=== PATIENT | male | born 1945 ===

== ENCOUNTER 2018-10-17 16:14 | Inpatient (IN) ==
[2018-10-17] MEDS ORDERED: SODIUM CHLORIDE 0.9% 1,000 ML IV STA (16:45)
[2018-10-17] MEDS ORDERED: ALBUTEROL/IPRATROPIUM 3 ML NEB RESP TX STA (16:45)
[2018-10-17 17:01] LABS: Basophils # 0.1 10*3/uL (0.0-0.2); Eosinophils % 0.3 % (0.00-10.9); Hematocrit 37.8 VOL% (42.0-52.0); Hemoglobin 11.3 GM/DL (14.0-18.0); Immature Granulocytes % 0.3 %; Immature Granulocytes Absolute 0.02 #; Lymphocytes # 1.5 10*3/uL (1.4-4.0); Lymphocytes % 24.5 % (21.2-54.2); Mean Corpuscular HGB Conc 29.9 GM/DL (32-36); Mean Corpuscular Volume 85.7 FL (87-102); Mean Platelet Volume 12.1 FL (9.6-12.0); Monocytes % 9.7 % (1.7-12.7); Neutrophils % 64.2 % (38.7-73.9); Platelet Count 199 T/CUMM (130-400); Red Blood Count 4.41 MC/CUMM (3.8-5.5); Red Cell Distribution Width 16.4 % (9.3-17.3); White Blood Count 6.2 T/CUMM (4-12)
[2018-10-17 17:18] LABS: Alanine Aminotransferase 34 U/L (16-61); Albumin 3.2 G/DL (3.4-5.0); Alkaline Phosphatase 91 U/L (45-117); Aspartate Amino Transferase 26 U/L (0-37); Bilirubin,Total < 0.39 MG/DL (0.2-1.0); Blood Urea Nitrogen 16 MG/DL (7-18); Calcium 9.4 MG/DL (8.5-10.1); Glucose 123 MG/DL (74-106); Osmolality,Calculated 280.4 MOS/KG (273-304); Total Protein 8.6 G/DL (6.4-8.3)
[2018-10-17 18:09] LABS: Apearance,Urine Slightly Hazy (Clear); Bilirubin,Urine Negative (Negative); Blood, Urine Small mg/dL (Negative); Glucose,Urine (UA) Negative (Negative); Hyaline Casts,Urine 11 /LPF (0-3); Ketones,Urine 5 mg/dL (Negative); Mucus,Urine Many /LPF (Occasional); Nitrite,Urine Negative (Negative); Protein,Urine Negative; RBC,Urine 20 /HPF (0-4); Squamous Epithelial Cell,Urine Occasional /HPF (0-10); Urine Color Dark yellow (Yellow); Urine Specific Gravity 1.028 (1.001-1.035); WBC,Urine 10 /HPF (0-6)
[2018-10-17] MEDS ORDERED: LEVOFLOXACIN INJ 500 MG in PREMIX 1 EACH IV STA (18:30)
[2018-10-17] MEDS ORDERED: GLUCAGON 1 MG VIAL IM PRN (19:50)
[2018-10-17] MEDS ORDERED: ACETAMINOPHEN 325 MG TABLET PO PRN (19:50)
[2018-10-17] MEDS ORDERED: ONDANSETRON 4 MG/2 ML VIAL IV PRN (19:50)
[2018-10-17] MEDS ORDERED: DEXTROSE 50% 25 GM/50 ML VIAL IV PRN (19:50)
[2018-10-17] MEDS ORDERED: ENOXAPARIN 30 MG/0.3 ML SYRINGE SUBCUT SCH (21:00)
[2018-10-17] MEDS: ALBUTEROL/IPRATROPIUM 3 ML NEB RESP TX SCH (21:05)
[2018-10-17] MEDS: SODIUM CHLORIDE 0.9% 1,000 ML IV SCH (21:32)
[2018-10-17] MEDS: cefTRIAXone 1,000 MG in SYRINGE 1 EACH IV SCH (21:33)
[2018-10-17] MEDS: FAMOTIDINE 20 MG TABLET PO SCH (21:33)
[2018-10-17] MEDS: methylPREDNISolone SOD SUC 40 MG/1 ML VIAL IV SCH (21:35)
[2018-10-18] MEDS: ALBUTEROL/IPRATROPIUM 3 ML NEB RESP TX SCH ×4 (01:25→19:08)
[2018-10-18] MEDS: SODIUM CHLORIDE 0.9% 1,000 ML IV SCH ×3 (05:26→21:34)
[2018-10-18] MEDS: methylPREDNISolone SOD SUC 40 MG/1 ML VIAL IV SCH ×3 (05:27→21:36)
[2018-10-18 06:02] LABS: Blood Urea Nitrogen 12 MG/DL (7-18); Calcium 8.3 MG/DL (8.5-10.1); Glucose 114 MG/DL (74-106); Osmolality,Calculated 279.4 MOS/KG (273-304); Troponin I < 0.015 NG/ML (0.00-0.045)
[2018-10-18 06:36] LABS: Basophils % 0.3 % (0.0-0.8); Hematocrit 32.4 VOL% (42.0-52.0); Immature Granulocytes % 0.6 %; Immature Granulocytes Absolute 0.02 #; Lymphocytes # 0.4 10*3/uL (1.4-4.0); Lymphocytes % 11.8 % (21.2-54.2); Mean Corpuscular HGB Conc 28.7 GM/DL (32-36); Mean Corpuscular Volume 87.3 FL (87-102); Mean Platelet Volume 12.6 FL (9.6-12.0); Monocytes % 2.1 % (1.7-12.7); Neutrophils % 85.2 % (38.7-73.9); Red Blood Count 3.71 MC/CUMM (3.8-5.5); Red Cell Distribution Width 16.9 % (9.3-17.3)
[2018-10-18 06:41] LABS: White Blood Count 3.4 T/CUMM (4-12)
[2018-10-18 06:42] LABS: Hemoglobin 9.3 GM/DL (14.0-18.0); Platelet Count 146 T/CUMM (130-400)
[2018-10-18 06:56] LABS: Hypochromasia 1+; Microcytosis 1+
[2018-10-18 06:57] LABS: Ovalocytes Slight; Platelet Estimate Adequate
[2018-10-18] MEDS: DIGOXIN 0.25 MG TABLET PO SCH (09:45)
[2018-10-18] MEDS: ASPIRIN EC 81 MG TABLET PO SCH (09:45)
[2018-10-18] MEDS: FAMOTIDINE 20 MG TABLET PO SCH ×2 (09:45→21:35)
[2018-10-18] MEDS: TAMSULOSIN 0.4 MG CAPSULE PO SCH (09:45)
[2018-10-18] MEDS: CLOPIDOGREL 75 MG TABLET PO SCH (09:47)
[2018-10-18] MEDS: DILTIAZEM CD 120 MG CAPSULE PO SCH (09:47)
[2018-10-18] MEDS: ATORVASTATIN 80 MG TABLET PO SCH (21:34)
[2018-10-18] MEDS: cefTRIAXone 1,000 MG in SYRINGE 1 EACH IV SCH (21:35)
[2018-10-19] MEDS: ALBUTEROL/IPRATROPIUM 3 ML NEB RESP TX SCH ×4 (01:14→18:58)
[2018-10-19] MEDS: methylPREDNISolone SOD SUC 40 MG/1 ML VIAL IV SCH ×3 (04:19→22:05)
[2018-10-19] MEDS: SODIUM CHLORIDE 0.9% 1,000 ML IV SCH ×3 (04:23→23:45)
[2018-10-19 09:30] LABS: Hematocrit 34.6 VOL% (42.0-52.0); Immature Granulocytes % 0.8 %; Immature Granulocytes Absolute 0.04 #; Lymphocytes # 0.3 10*3/uL (1.4-4.0); Lymphocytes % 6.2 % (21.2-54.2); Mean Corpuscular HGB Conc 27.7 GM/DL (32-36); Mean Corpuscular Volume 89.6 FL (87-102); Mean Platelet Volume 11.9 FL (9.6-12.0); Monocytes % 2.5 % (1.7-12.7); Neutrophils % 90.5 % (38.7-73.9); Platelet Count 159 T/CUMM (130-400); Red Blood Count 3.86 MC/CUMM (3.8-5.5); White Blood Count 5.2 T/CUMM (4-12)
[2018-10-19 09:31] LABS: Hemoglobin 9.6 GM/DL (14.0-18.0)
[2018-10-19 09:35] LABS: Alanine Aminotransferase 24 U/L (16-61); Albumin 2.6 G/DL (3.4-5.0); Alkaline Phosphatase 82 U/L (45-117); Aspartate Amino Transferase 16 U/L (0-37); Bilirubin,Total < 0.39 MG/DL (0.2-1.0); Blood Urea Nitrogen 11 MG/DL (7-18); Calcium 8.5 MG/DL (8.5-10.1); Glucose 120 MG/DL (74-106); Total Protein 6.8 G/DL (6.4-8.3)
[2018-10-19 09:47] LABS: Hypochromasia 1+; Platelet Estimate Adequate
[2018-10-19 09:48] LABS: Microcytosis 1+
[2018-10-19] MEDS: DILTIAZEM CD 120 MG CAPSULE PO SCH (10:05)
[2018-10-19] MEDS: DIGOXIN 0.25 MG TABLET PO SCH (10:05)
[2018-10-19] MEDS: ASPIRIN EC 81 MG TABLET PO SCH (10:05)
[2018-10-19] MEDS: CLOPIDOGREL 75 MG TABLET PO SCH (10:05)
[2018-10-19] MEDS: TAMSULOSIN 0.4 MG CAPSULE PO SCH (10:05)
[2018-10-19] MEDS: FAMOTIDINE 20 MG TABLET PO SCH ×2 (10:05→22:05)
[2018-10-19] MEDS: ATORVASTATIN 80 MG TABLET PO SCH (22:05)
[2018-10-19] MEDS: cefTRIAXone 1,000 MG in SYRINGE 1 EACH IV SCH (22:08)
[2018-10-20] MEDS: ALBUTEROL/IPRATROPIUM 3 ML NEB RESP TX SCH ×4 (00:15→23:46)
[2018-10-20] MEDS: methylPREDNISolone SOD SUC 40 MG/1 ML VIAL IV SCH ×3 (05:01→22:00)
[2018-10-20] MEDS: SODIUM CHLORIDE 0.9% 1,000 ML IV SCH ×2 (05:21→10:06)
[2018-10-20 09:24] LABS: Basophils % 0.1 % (0.0-0.8); Hematocrit 41.7 VOL% (42.0-52.0); Immature Granulocytes % 0.9 %; Immature Granulocytes Absolute 0.08 #; Lymphocytes # 0.4 10*3/uL (1.4-4.0); Lymphocytes % 4.7 % (21.2-54.2); Mean Corpuscular HGB Conc 27.6 GM/DL (32-36); Mean Corpuscular Volume 89.9 FL (87-102); Mean Platelet Volume 12.1 FL (9.6-12.0); Monocytes % 2.9 % (1.7-12.7); Neutrophils % 91.4 % (38.7-73.9); Platelet Count 199 T/CUMM (130-400); Red Blood Count 4.64 MC/CUMM (3.8-5.5); Red Cell Distribution Width 17.7 % (9.3-17.3)
[2018-10-20 09:25] LABS: Hemoglobin 11.5 GM/DL (14.0-18.0)
[2018-10-20 09:35] LABS: Alanine Aminotransferase 28 U/L (16-61); Albumin 2.5 G/DL (3.4-5.0); Alkaline Phosphatase 96 U/L (45-117); Aspartate Amino Transferase 19 U/L (0-37); Bilirubin,Total < 0.39 MG/DL (0.2-1.0); Blood Urea Nitrogen 16 MG/DL (7-18); Calcium 8.6 MG/DL (8.5-10.1); Glucose 144 MG/DL (74-106); Osmolality,Calculated 286.1 MOS/KG (273-304); Total Protein 7.1 G/DL (6.4-8.3)
[2018-10-20 09:42] LABS: Band Neutrophils 1 % (0-10); Hypochromasia 1+; Lymphocytes 4 % (20-55); Platelet Estimate Adequate; Segmented Neutrophils 89 % (50-85); Total Cells Counted 100
[2018-10-20 09:43] LABS: Microcytosis 1+
[2018-10-20] MEDS: FAMOTIDINE 20 MG TABLET PO SCH ×2 (10:13→22:00)
[2018-10-20] MEDS: TAMSULOSIN 0.4 MG CAPSULE PO SCH (10:13)
[2018-10-20] MEDS: DIGOXIN 0.25 MG TABLET PO SCH (10:14)
[2018-10-20] MEDS: DILTIAZEM CD 120 MG CAPSULE PO SCH (10:14)
[2018-10-20] MEDS: ASPIRIN EC 81 MG TABLET PO SCH (10:14)
[2018-10-20] MEDS: CLOPIDOGREL 75 MG TABLET PO SCH (10:14)
[2018-10-20] MEDS ORDERED: ALBUTEROL/IPRATROPIUM 3 ML NEB RESP TX PRN (17:29)
[2018-10-20] MEDS: ATORVASTATIN 80 MG TABLET PO SCH (22:00)
[2018-10-20] MEDS: cefTRIAXone 1,000 MG in SYRINGE 1 EACH IV SCH (22:01)
[2018-10-21] MEDS: ALBUTEROL/IPRATROPIUM 3 ML NEB RESP TX SCH ×6 (03:43→23:56)
[2018-10-21] MEDS: methylPREDNISolone SOD SUC 40 MG/1 ML VIAL IV SCH ×3 (05:23→21:11)
[2018-10-21] MEDS: DIGOXIN 0.25 MG TABLET PO SCH (09:11)
[2018-10-21] MEDS: DILTIAZEM CD 120 MG CAPSULE PO SCH (09:12)
[2018-10-21] MEDS: ASPIRIN EC 81 MG TABLET PO SCH (09:12)
[2018-10-21] MEDS: FAMOTIDINE 20 MG TABLET PO SCH ×2 (09:12→21:11)
[2018-10-21] MEDS: CLOPIDOGREL 75 MG TABLET PO SCH (09:12)
[2018-10-21] MEDS: TAMSULOSIN 0.4 MG CAPSULE PO SCH (09:12)
[2018-10-21] MEDS: SKIN HEALING OINT (AQUAPHOR) 50 GM TUBE TOP SCH (17:13)
[2018-10-21] MEDS: ATORVASTATIN 80 MG TABLET PO SCH (21:11)
[2018-10-21] MEDS: cefTRIAXone 1,000 MG in SYRINGE 1 EACH IV SCH (21:12)
[2018-10-22] MEDS: ALBUTEROL/IPRATROPIUM 3 ML NEB RESP TX SCH ×5 (04:30→19:20)
[2018-10-22] MEDS: methylPREDNISolone SOD SUC 40 MG/1 ML VIAL IV SCH ×3 (05:00→21:22)
[2018-10-22 05:24] LABS: Basophils % 0.1 % (0.0-0.8); Hematocrit 35.4 VOL% (42.0-52.0); Hemoglobin 10.6 GM/DL (14.0-18.0); Immature Granulocytes % 1.6 %; Immature Granulocytes Absolute 0.16 #; Lymphocytes # 0.5 10*3/uL (1.4-4.0); Lymphocytes % 4.7 % (21.2-54.2); Mean Corpuscular HGB Conc 29.9 GM/DL (32-36); Mean Corpuscular Volume 86.3 FL (87-102); Mean Platelet Volume 12.6 FL (9.6-12.0); Monocytes % 4.8 % (1.7-12.7); NRBC # 0.03 10*3/uL; Neutrophils % 88.8 % (38.7-73.9); Platelet Count 201 T/CUMM (130-400); Red Cell Distribution Width 18.6 % (9.3-17.3)
[2018-10-22 05:46] LABS: Calcium 8.6 MG/DL (8.5-10.1); Osmolality,Calculated 288.1 MOS/KG (273-304)
[2018-10-22 06:00] LABS: Band Neutrophils 3 % (0-10); Hypochromasia 1+; Lymphocytes 6 % (20-55); Nucleated Red Blood Cells 1 (0-5); Platelet Estimate Adequate; Segmented Neutrophils 86 % (50-85); Total Cells Counted 100
[2018-10-22 06:01] LABS: Microcytosis 1+
[2018-10-22] MEDS: DIGOXIN 0.25 MG TABLET PO SCH (10:08)
[2018-10-22] MEDS: ASPIRIN EC 81 MG TABLET PO SCH (10:09)
[2018-10-22] MEDS: TAMSULOSIN 0.4 MG CAPSULE PO SCH (10:09)
[2018-10-22] MEDS: FAMOTIDINE 20 MG TABLET PO SCH ×2 (10:09→21:25)
[2018-10-22] MEDS: DILTIAZEM CD 120 MG CAPSULE PO SCH (10:09)
[2018-10-22] MEDS: CLOPIDOGREL 75 MG TABLET PO SCH (10:09)
[2018-10-22] MEDS: SKIN HEALING OINT (AQUAPHOR) 50 GM TUBE TOP SCH (10:10)
[2018-10-22] MEDS: cefTRIAXone 1,000 MG in SYRINGE 1 EACH IV SCH (21:25)
[2018-10-22] MEDS: ATORVASTATIN 80 MG TABLET PO SCH (21:25)
[2018-10-23] MEDS: ALBUTEROL/IPRATROPIUM 3 ML NEB RESP TX SCH ×7 (04:35→22:34)
[2018-10-23] MEDS: methylPREDNISolone SOD SUC 40 MG/1 ML VIAL IV SCH ×2 (05:02→22:04)
[2018-10-23] MEDS: ASPIRIN EC 81 MG TABLET PO SCH (09:12)
[2018-10-23] MEDS: TAMSULOSIN 0.4 MG CAPSULE PO SCH (09:13)
[2018-10-23] MEDS: DILTIAZEM CD 120 MG CAPSULE PO SCH (09:13)
[2018-10-23] MEDS: DIGOXIN 0.25 MG TABLET PO SCH (09:13)
[2018-10-23] MEDS: FAMOTIDINE 20 MG TABLET PO SCH ×2 (09:13→22:04)
[2018-10-23] MEDS: CLOPIDOGREL 75 MG TABLET PO SCH (09:13)
[2018-10-23] MEDS: SKIN HEALING OINT (AQUAPHOR) 50 GM TUBE TOP SCH (10:28)
[2018-10-23 18:47] LABS: HIV Antigen/Antibody Result Nonreactive (Nonreactive); Hepatitis B Surface Ag Quant < 0.10 Index; Hepatitis B Surface Ag Result Negative (Negative); Hepatitis C Virus Ab Quant 0.11 Index; Hepatitis C Virus Ab Result Negative (Negative)
[2018-10-23] MEDS: ATORVASTATIN 80 MG TABLET PO SCH (22:03)
[2018-10-23] MEDS: ZALEPLON 5 MG CAPSULE PO PRN (22:03)
[2018-10-23] MEDS: cefTRIAXone 1,000 MG in SYRINGE 1 EACH IV SCH (22:04)
[2018-10-24] MEDS: ALBUTEROL/IPRATROPIUM 3 ML NEB RESP TX SCH ×6 (02:28→23:47)
[2018-10-24 05:56] LABS: Basophils % 0.1 % (0.0-0.8); Hematocrit 39.2 VOL% (42.0-52.0); Hemoglobin 11.9 GM/DL (14.0-18.0); Immature Granulocytes Absolute 0.19 #; Lymphocytes # 0.3 10*3/uL (1.4-4.0); Lymphocytes % 1.4 % (21.2-54.2); Mean Corpuscular HGB Conc 30.4 GM/DL (32-36); Mean Corpuscular Volume 87.3 FL (87-102); Mean Platelet Volume 12.6 FL (9.6-12.0); Monocytes % 5.6 % (1.7-12.7); NRBC # 0.06 10*3/uL; Neutrophils % 91.9 % (38.7-73.9); Platelet Count 211 T/CUMM (130-400); Red Blood Count 4.49 MC/CUMM (3.8-5.5); Red Cell Distribution Width 20.2 % (9.3-17.3); White Blood Count 19.8 T/CUMM (4-12)
[2018-10-24 06:01] LABS: Calcium 8.5 MG/DL (8.5-10.1); Osmolality,Calculated 288.4 MOS/KG (273-304)
[2018-10-24 06:53] LABS: Band Neutrophils 2 % (0-10); Lymphocytes 8 % (20-55); Nucleated Red Blood Cells 1 (0-5); Segmented Neutrophils 87 % (50-85); Total Cells Counted 100
[2018-10-24 06:54] LABS: Hypochromasia 1+; Microcytosis 1+; Target Cells Slight
[2018-10-24 06:55] LABS: Platelet Estimate Normal
[2018-10-24] MEDS ORDERED: PROMETHAZINE 25 MG/1 ML VIAL IM ONE (07:30)
[2018-10-24] MEDS ORDERED: MEPERIDINE 50 MG/1 ML VIAL IM ONE (07:30)
[2018-10-24] MEDS ORDERED: MIDAZOLAM 2 MG/2 ML VIAL IV ONE (08:00)
[2018-10-24] MEDS ORDERED: LIDOCAINE 2% VISCOUS 100 ML BOTTLE SWISH/SPIT ONE (08:00)
[2018-10-24] MEDS ORDERED: LIDOCAINE 1% 20 ML VIAL MISC INJ ONE (08:00)
[2018-10-24] MEDS ORDERED: LIDOCAINE 2% 20 ML VIAL RESP TX ONE (08:00)
[2018-10-24] MEDS: SKIN HEALING OINT (AQUAPHOR) 50 GM TUBE TOP SCH (09:59)
[2018-10-24] MEDS: methylPREDNISolone SOD SUC 40 MG/1 ML VIAL IV SCH ×2 (10:00→21:47)
[2018-10-24] MEDS: DILTIAZEM CD 120 MG CAPSULE PO SCH (10:55)
[2018-10-24] MEDS: TAMSULOSIN 0.4 MG CAPSULE PO SCH (10:55)
[2018-10-24] MEDS: CLOPIDOGREL 75 MG TABLET PO SCH (10:55)
[2018-10-24] MEDS: DIGOXIN 0.25 MG TABLET PO SCH (10:56)
[2018-10-24] MEDS: FAMOTIDINE 20 MG TABLET PO SCH ×2 (10:56→21:47)
[2018-10-24] MEDS: ASPIRIN EC 81 MG TABLET PO SCH (10:56)
[2018-10-24] MEDS: cefTRIAXone 1,000 MG in SYRINGE 1 EACH IV SCH (21:46)
[2018-10-24] MEDS: ATORVASTATIN 80 MG TABLET PO SCH (21:47)
[2018-10-24] MEDS: ZALEPLON 5 MG CAPSULE PO PRN (21:47)
[2018-10-25] MEDS: ALBUTEROL/IPRATROPIUM 3 ML NEB RESP TX SCH ×4 (03:27→16:24)
[2018-10-25 05:55] LABS: Basophils % 0.1 % (0.0-0.8); Hematocrit 41.5 VOL% (42.0-52.0); Immature Granulocytes % 0.9 %; Immature Granulocytes Absolute 0.19 #; Lymphocytes # 0.3 10*3/uL (1.4-4.0); Lymphocytes % 1.3 % (21.2-54.2); Mean Corpuscular HGB Conc 29.2 GM/DL (32-36); Mean Corpuscular Volume 88.9 FL (87-102); Mean Platelet Volume 12.8 FL (9.6-12.0); Monocytes % 3.4 % (1.7-12.7); NRBC # 0.04 10*3/uL; Neutrophils % 94.3 % (38.7-73.9); Platelet Count 188 T/CUMM (130-400); Red Blood Count 4.67 MC/CUMM (3.8-5.5); White Blood Count 21.2 T/CUMM (4-12)
[2018-10-25 06:22] LABS: Calcium 8.8 MG/DL (8.5-10.1); Osmolality,Calculated 283.5 MOS/KG (273-304)
[2018-10-25 06:36] LABS: Hemoglobin 12.1 GM/DL (14.0-18.0)
[2018-10-25 07:10] LABS: Band Neutrophils 8 % (0-10); Lymphocytes 5 % (20-55); Platelet Estimate Normal; Segmented Neutrophils 80 % (50-85); Total Cells Counted 100
[2018-10-25 07:11] LABS: Anisocytosis Slight
[2018-10-25] MEDS: DILTIAZEM CD 120 MG CAPSULE PO SCH (08:53)
[2018-10-25] MEDS: TAMSULOSIN 0.4 MG CAPSULE PO SCH (08:53)
[2018-10-25] MEDS: CLOPIDOGREL 75 MG TABLET PO SCH (08:53)
[2018-10-25] MEDS: ASPIRIN EC 81 MG TABLET PO SCH (08:53)
[2018-10-25] MEDS: DIGOXIN 0.25 MG TABLET PO SCH (08:53)
[2018-10-25] MEDS: methylPREDNISolone SOD SUC 40 MG/1 ML VIAL IV SCH (08:54)
[2018-10-25] MEDS: FAMOTIDINE 20 MG TABLET PO SCH (08:54)
[2018-10-25] MEDS: SKIN HEALING OINT (AQUAPHOR) 50 GM TUBE TOP SCH (09:26)
[2018-10-25 16:41] VITALS: BP 106/70
== END 2018-10-25 16:59 | disposition swing bed (61) | DRG 190 ==
LOC: N.ED 16:14 → SUATTDRO 18:48 → N.EDINP 18:48 → N.5E 19:44
PROVIDERS: ADMIT Internal Medicine; ATTEND Internal Medicine

== ENCOUNTER 2018-10-30 21:21 | Inpatient (IN) ==
[2018-10-30] MEDS ORDERED: ETOMIDATE 20 MG/10 ML VIAL IV ONE (23:21)
[2018-10-30] MEDS ORDERED: SUCCINYLCHOLINE 200 MG/10 ML VIAL ONE (23:22)
[2018-10-30] MEDS ORDERED: ACETAMINOPHEN 325 MG TABLET PO PRN (23:28)
[2018-10-30] MEDS ORDERED: DOCUSATE SODIUM 100 MG CAPSULE PO PRN (23:28)
[2018-10-30] MEDS ORDERED: ONDANSETRON 4 MG/2 ML VIAL IV PRN (23:28)
[2018-10-30 23:34] LABS: ABG Base Excess 14.8 MMOL/L (-2.5-2.5); ABG HCO3 38.6 MMOL/L (20-26); ABG PCO2 64.9 MM HG (35-48); ABG PH 7.425 (7.35-7.45); ABG PO2 60.1 MM HG (80-95)
[2018-10-31 00:11] LABS: Basophils % 0.1 % (0.0-0.8); Hematocrit 39.1 VOL% (42.0-52.0); Immature Granulocytes % 1.2 %; Immature Granulocytes Absolute 0.23 #; Lymphocytes # 0.2 10*3/uL (1.4-4.0); Mean Corpuscular HGB Conc 28.4 GM/DL (32-36); Mean Corpuscular Volume 91.6 FL (87-102); Mean Platelet Volume 12.2 FL (9.6-12.0); Monocytes % 2.8 % (1.7-12.7); NRBC # 0.02 10*3/uL; Neutrophils % 94.9 % (38.7-73.9); Platelet Count 164 T/CUMM (130-400); Red Blood Count 4.27 MC/CUMM (3.8-5.5); Red Cell Distribution Width 21.9 % (9.3-17.3); White Blood Count 18.6 T/CUMM (4-12)
[2018-10-31] MEDS: methylPREDNISolone SOD SUC 125 MG/2 ML VIAL IV SCH ×4 (00:26→17:59)
[2018-10-31] MEDS: LEVOFLOXACIN INJ 750 MG in PREMIX 1 EACH IV SCH ×2 (00:26→23:52)
[2018-10-31] MEDS: ENOXAPARIN 40 MG/0.4 ML SYRINGE SUBCUT SCH ×2 (00:26→23:57)
[2018-10-31] MEDS: SODIUM CHLORIDE 0.9% 1,000 ML IV SCH ×3 (00:27→20:58)
[2018-10-31] MEDS: BUDESONIDE/FORMOTEROL 160-4.5 INHALER 6 GM INH SCH ×3 (00:27→20:56)
[2018-10-31 00:28] LABS: Hemoglobin 11.2 GM/DL (14.0-18.0)
[2018-10-31 00:28] LABS: Calcium 8.5 MG/DL (8.5-10.1); Osmolality,Calculated 297.3 MOS/KG (273-304)
[2018-10-31 01:05] LABS: Band Neutrophils 2 % (0-10); Lymphocytes 4 % (20-55); Segmented Neutrophils 93 % (50-85); Total Cells Counted 100
[2018-10-31 01:06] LABS: Anisocytosis 1+; Ovalocytes Few; Polychromasia 1+
[2018-10-31 01:07] LABS: Howell-Jolly Bodies Few; Platelet Estimate Adequate
[2018-10-31] MEDS: ALBUTEROL/IPRATROPIUM 3 ML NEB RESP TX SCH ×6 (02:05→20:00)
[2018-10-31 02:52] LABS: Alanine Aminotransferase 37 U/L (16-61); Albumin 2.4 G/DL (3.4-5.0); Alkaline Phosphatase 119 U/L (45-117); Aspartate Amino Transferase 15 U/L (0-37); Bilirubin,Total < 0.39 MG/DL (0.2-1.0); Blood Urea Nitrogen 36 MG/DL (7-18); Calcium 8.3 MG/DL (8.5-10.1); Glucose 208 MG/DL (74-106); Osmolality,Calculated 296.1 MOS/KG (273-304); Total Protein 5.6 G/DL (6.4-8.3)
[2018-10-31 04:53] LABS: ABG Base Excess 14.3 MMOL/L (-2.5-2.5); ABG HCO3 41.8 MMOL/L (20-26); ABG Oxygen Saturation 94.5 % (95-100); ABG PCO2 67.9 MM HG (35-48); ABG PH 7.407 (7.35-7.45); ABG PO2 79.7 MM HG (80-95); ABG TCO2 43.9 MMOL/L (23-27); Allen Test Positive; Pt O2 Delivery Device BIPAP
[2018-10-31] MEDS: DUTASTERIDE 0.5 MG CAPSULE PO SCH (08:30)
[2018-10-31] MEDS: ASPIRIN EC 81 MG TABLET PO SCH (08:30)
[2018-10-31] MEDS: DILTIAZEM CD 120 MG CAPSULE PO SCH (08:30)
[2018-10-31] MEDS: CLOPIDOGREL 75 MG TABLET PO SCH (08:31)
[2018-10-31] MEDS: PANTOPRAZOLE 40 MG TABLET PO SCH (08:31)
[2018-10-31] MEDS: TAMSULOSIN 0.4 MG CAPSULE PO SCH (08:32)
[2018-10-31] MEDS: DOCUSATE SODIUM 100 MG CAPSULE PO SCH (08:32)
[2018-10-31] MEDS: DIGOXIN 0.25 MG TABLET PO SCH (13:31)
[2018-10-31] MEDS: ALBUTEROL 2.5 MG/3 ML NEB RESP TX PRN (17:35)
[2018-10-31] MEDS ORDERED: MIRTAZAPINE 15 MG TABLET PO SCH (21:00)
[2018-10-31] MEDS ORDERED: ATORVASTATIN 80 MG TABLET PO SCH (21:00)
[2018-11-01] MEDS: ALBUTEROL/IPRATROPIUM 3 ML NEB RESP TX SCH ×3 (00:19→12:06)
[2018-11-01] MEDS: methylPREDNISolone SOD SUC 125 MG/2 ML VIAL IV SCH (01:33)
[2018-11-01 04:15] LABS: ABG Base Excess 12.7 MMOL/L (-2.5-2.5); ABG HCO3 36.4 MMOL/L (20-26); ABG Oxygen Saturation 91.5 % (95-100); ABG PCO2 65.4 MM HG (35-48); ABG PH 7.399 (7.35-7.45); ABG PO2 64.1 MM HG (80-95); ABG TCO2 36.4 MMOL/L (23-27); Allen Test Positive
[2018-11-01 05:56] LABS: Basophils % 0.1 % (0.0-0.8); Hematocrit 34.8 VOL% (42.0-52.0); Immature Granulocytes % 1.3 %; Immature Granulocytes Absolute 0.21 #; Lymphocytes # 0.1 10*3/uL (1.4-4.0); Lymphocytes % 0.9 % (21.2-54.2); Mean Corpuscular HGB Conc 29.3 GM/DL (32-36); Mean Corpuscular Volume 90.6 FL (87-102); Mean Platelet Volume 12.7 FL (9.6-12.0); Monocytes % 4.3 % (1.7-12.7); NRBC # 0.03 10*3/uL; Neutrophils % 93.4 % (38.7-73.9); Platelet Count 154 T/CUMM (130-400); Red Blood Count 3.84 MC/CUMM (3.8-5.5); Red Cell Distribution Width 21.9 % (9.3-17.3); White Blood Count 16.4 T/CUMM (4-12)
[2018-11-01 05:57] LABS: Hemoglobin 10.2 GM/DL (14.0-18.0)
[2018-11-01 05:59] LABS: Calcium 8.2 MG/DL (8.5-10.1); Osmolality,Calculated 299.1 MOS/KG (273-304)
[2018-11-01 06:03] LABS: Band Neutrophils 5 % (0-10); Hypochromasia 1+; Lymphocytes 2 % (20-55); Nucleated Red Blood Cells 1 (0-5); Platelet Estimate Adequate; Segmented Neutrophils 93 % (50-85); Total Cells Counted 100
[2018-11-01 06:04] LABS: Microcytosis 1+
[2018-11-01] MEDS: DOCUSATE SODIUM 100 MG CAPSULE PO SCH (08:13)
[2018-11-01] MEDS: TAMSULOSIN 0.4 MG CAPSULE PO SCH (08:13)
[2018-11-01] MEDS: DUTASTERIDE 0.5 MG CAPSULE PO SCH (08:13)
[2018-11-01] MEDS: DILTIAZEM CD 120 MG CAPSULE PO SCH (08:14)
[2018-11-01] MEDS: PANTOPRAZOLE 40 MG TABLET PO SCH (08:14)
[2018-11-01] MEDS: ASPIRIN EC 81 MG TABLET PO SCH (08:14)
[2018-11-01] MEDS: BUDESONIDE/FORMOTEROL 160-4.5 INHALER 6 GM INH SCH (08:14)
[2018-11-01] MEDS: CLOPIDOGREL 75 MG TABLET PO SCH (08:14)
[2018-11-01] MEDS ORDERED: methylPREDNISolone SOD SUC 40 MG/1 ML VIAL IV SCH (09:00)
[2018-11-01] MEDS ORDERED: ROFLUMILAST 500 MCG TABLET PO SCH (09:00)
[2018-11-01] MEDS ORDERED: GLUCAGON 1 MG VIAL IM PRN (09:28)
[2018-11-01] MEDS ORDERED: DEXTROSE 50% 25 GM/50 ML VIAL IV PRN (09:28)
[2018-11-01] MEDS: ALBUTEROL 2.5 MG/3 ML NEB RESP TX PRN ×2 (09:43→14:14)
[2018-11-01] MEDS ORDERED: INSULIN LISPRO 100 UNIT/ML SUBCUT SCH (11:30)
[2018-11-01] MEDS: DIGOXIN 0.25 MG TABLET PO SCH (12:43)
[2018-11-01] MEDS: SODIUM CHLORIDE 0.9% 1,000 ML IV SCH (14:22)
[2018-11-01 16:12] VITALS: BP 98/70
== END 2018-11-01 16:30 | disposition hospice, home (50) | DRG 189 ==
LOC: N.ICU 22:48 → SUATTDRO 23:50 → N.5E 10-31 18:53
PROVIDERS: ADMIT Internal Medicine; ATTEND Hospitalist